=== PATIENT | female | born 1960 | race Caucasian/White ===

== ENCOUNTER 2020-10-18 13:20 | Emergency (ER) | payer OTHER, BC ==
[2020-10-18] MEDS ORDERED: Cephalexin 500 MG Cap ONE (13:30)
[2020-10-18 14:45] VITALS: BP 152/87; PULSE 80
--- NOTE | 2020-10-18 15:22 | ER ---
HISTORY OF PRESENT ILLNESS: A 60-year-old lady who comes in after having a sliver imbedded below the nail of the right fourth finger. This happened a couple of hours ago. 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 The patient states that she thinks it goes past the nail area. There were just a few drops of blood initially, but nothing since. The patient states that she otherwise is healthy. She takes Naprosyn only on a p.r.n. basis for chronic pain. OBJECTIVE: GENERAL APPEARANCE: The patient is awake and alert. No obvious distress. EXTREMITIES: Examining the right fourth finger reveals a sliver-shaped foreign body below the nail bed, looks like it broke off about a [address] back from the distal end of the nail and I can feel that the sliver does go slightly proximal to the nail. TREATMENT PLAN: The end of the finger was swabbed with alcohol, after which I injected 1% lidocaine without epi locally for anesthesia. Then using a splinter forceps, I was able to grasp the distal end of the foreign body, but I could not remove it this way. The patient was also slightly uncomfortable, so I injected about another 0.5 mL of lidocaine on both sides of the distal end of the sliver, and then using a small Mosquito, I was able to remove it without any further difficulty. The wooden sliver measured just under 1 inch in length and the proximal end was sharp. Therefore, I feel I got the entire sliver out. Nursing staff will cleanse the wound. She will apply a dressing. She is to change the dressing daily for 2 or 3 days and then she should be able to leave it open to air. I will put her on Keflex for 4 days. [id number] medications should be used as needed for pain control. ACTIVITY: As tolerated. FOLLOWUP: P.r.n. DIAGNOSIS: Foreign body to right fourth finger. CRS/MODL /[id number]
== END 2020-10-18 14:00 | disposition home or self-care (01) ==
LOC: LB.ED 13:20
DX: S60.454A Superficial foreign body of right ring finger, initial encounter (principal); W45.8XXA Other foreign body or object entering through skin, initial encounter
CPT/HCPCS: 99282; A9270; 99283